=== PATIENT | male | born 1975 | race Caucasian/White ===

== ENCOUNTER 2016-08-13 12:48 | Emergency (ER) | payer OTHER ==
--- NOTE | 2016-08-15 16:08 | ER ---
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 He has abdominal wall weakness diatheses. He needs pain control. He has been in another hospital in [place] and he is on his way to [place], [place]. 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 His vitals within normal limits. He even has a CD with him. PHYSICAL EXAMINATION: Normal. He does have a large abdomen. CLINICAL IMPRESSION: Abdominal wall hernia. Pain management, given Ultram and shot of Toradol. Follow up with his primary provider when he gets back home. MASSIMO Curry / José Lilly MD / martine JOB #: [id number] CC: José Lilly MD, Attending Physician
== END 2016-08-13 13:45 | disposition home or self-care (01) ==
LOC: ER 12:48
DX: K43.9 Ventral hernia without obstruction or gangrene (principal); Q79.59 Other congenital malformations of abdominal wall; F17.210 Nicotine dependence, cigarettes, uncomplicated; F32.9 Major depressive disorder, single episode, unspecified; Z88.5 Allergy status to narcotic agent; Z79.899 Other long term (current) drug therapy; Z91.02 Food additives allergy status